=== PATIENT | male | born 1975 | race Caucasian/White ===

== ENCOUNTER 2020-11-06 14:42 | Emergency (ER) | payer SELFPAY ==
[~2020-11-06] VITALS: Ht 172.7 cm; Wt 99.0 kg
--- NOTE | 2020-11-06 15:35 | PHYS DOC ---
General Adult EDM: Chief Complaint: PAIN ON URINATION HPI: HPI: Patient is a 44-year-old male who was seen in the ER for dysuria with urinary frequency and right flank pain. Patient denies hematuria, history of urinary tract infection, abdominal pain, nausea, vomiting, diarrhea, fevers. Patient states that when he was incarcerated, he was told that he had a small kidney stone. Patient's vital signs are stable at this time and he is in no acute distress. (HARINI BLUE APRN) Review of Systems: Review of Systems: 14 body systems of the review of systems have been reviewed. See HPI for pertinent positive and negative responses, otherwise all other systems are negative, nonpertinent or noncontributory (HARINI BLUE APRN) Physical Exam: PE: Constitutional: Well developed, well nourished, no acute distress, non-toxic appearance. [] HENT: Normocephalic, atraumatic Eyes: PERRL, EOMI, conjunctiva normal, no discharge. [] Neck: Normal range of motion, no stridor Cardiovascular:Heart rate regular rhythm with a rate of 98, no murmur [] Lungs & Thorax: Bilateral breath sounds clear to auscultation [] Abdomen: Bowel sounds normal, soft, no tenderness, no masses, no pulsatile masses. [] Skin: Warm, dry, no erythema, no rash. [] Back: No tenderness, right-sided CVA tenderness. [] Extremities: No tenderness, no cyanosis, no clubbing, ROM intact, no edema. [] Neurologic: Alert and oriented X 3, normal motor function, normal sensory function, no focal deficits noted. [] Psychologic: Affect normal, judgement normal, mood normal. [] (HARINI BLUE APRN) Current Patient Data: Labs: Laboratory Tests Test 11/06/20 15:27 Urine Collection Type Unknown Urine Color Yellow Urine Clarity Clear Urine pH 7.0 Urine Specific Kemp 1.020 Urine Protein Neg Urine Glucose (UA) >=1000 mg/dL Urine Ketones (Stick) Neg mg/dL Urine Blood Neg Urine Nitrite Neg Urine Bilirubin Neg Urine Urobilinogen Dipstick 0.2 mg/dL Urine Leukocyte Esterase Neg Urine RBC 0 /HPF Urine WBC 0 /HPF Urine Squamous Epithelial Cells Occ /LPF Urine Bacteria 0 /HPF (HARINI BLUE APRN) EKG: EKG: [] (HARINI BLUE APRN) Radiology/Procedures: Radiology/Procedures: [] (HARINI BLUE APRN) Heart Score: C/O Chest Pain: No Risk Factors: Risk Factors: DM, Current or recent (<one month) smoker, HTN, HLP, family history of CAD, obesity. Risk Scores: Score 0 - 3: 2.5% MACE over next 6 weeks - Discharge Home Score 4 - 6: 20.3% MACE over next 6 weeks - Admit for Clinical Observation Score 7 - 10: 72.7% MACE over next 6 weeks - Early Invasive Strategies (HARINI BLUE APRN) Course & Med Decision Making: Course & Med Decision Making Pertinent Labs and Imaging studies reviewed. (See chart for details) [] Patient is a 44-year-old male being seen in the ER for dysuria and urinary frequency that started several days ago. Patient denies hematuria, history of UTIs, abdominal pain, nausea, vomiting, diarrhea, fevers. He is reporting r ight-sided flank pain. His vital signs are stable. Work-up in the ER consisted of a urinalysis that showed []. (HARINI BLUE APRN) Course & Med Decision Making I was the Attending physician on the above date of service of this patient. This patient was evaluated, examined, treated, and dispositioned from the emergency department by the mid-level practitioner. Although I was working at the time , no assistance was requested. Electronically signed, Yesenia Melchor DO (YESENIA MELCHOR DO) Keith Disclaimer: Keith Disclaimer: This electronic medical record was generated, in whole or in part, using a voice recognition dictation system. (HARINI BLUE APRN) Departure Departure: Impression: Primary Impression: Dysuria Additional Impression: Routine screening for STI (sexually transmitted infection) Disposition: HOME / SELF CARE / HOMELESS Condition: GOOD Referrals: PCP,PIEDAD (PCP) Patient Instructions: Dysuria Additional Instructions: You were seen in the ER today for pain with urination and urinary frequency. Your urinalysis was negative for any blood or bacteria. We will test you for g onorrhea and chlamydia off the urine sample that you provided in the ER and you will be notified of your results in approximately 2 days. Please avoid sexual intercourse until you receive these results. Increase your fluids and avoid bladder irritants like caffeine, alcohol and sugary beverages. Follow-up with your primary care provider tomorrow regarding your ER visit. If you do not have a primary care provider you can follow-up with the attached primary care provider. If you develop worsening of your symptoms, abdominal pain, back pain, intractable nausea or vomiting, high fevers refractory to treatment or any new or worsening concerns return to the ER. EMERGENCY DEPARTMENT GENERAL DISCHARGE INSTRUCTIONS Thank you for coming to [facility] (ED) today and trusting us with you care. We trust that you had a positivie experience in our Emergency Department. If you wish to speak to the department management, you may call the director at [phone]. YOUR FOLLOW UP INSTRUCTIONS ARE FOLLOWS: 1. Do you have a private Doctor? If you do not have a private doctor, please ask for a resource list of physicians or clinics that may be able to assist you with follow up care. 2. The Emergency Physician has interpreted your x-rays. The X-Ray specialist will also review them. If there is a change in the findings, you will be notified in 48 hours when at all possible. 3. A lab test or culture has been done, your results will be reviewed and you will be notified if you need a change in treatment. ADDITIONAL INSTRUCTIONS AND INFORMATION: 1. Your care today has been supervised by a physician who is specially trained in emergency care. Many problems require more than one evaluation for a complete diagnosis and treatment. We recommend that you schedule your follow up appointment as recommended to ensure complete treatment of you illness or injury. If you are unable to obtain follow up care and continue to have a problem, or if your condition worsens, we recommend that you return to the ED. 2. We are not able to safely determine your condition over the phone nor are we able to give sound medical advice over the phone. For these safety reasons, if you call for medical advice we will ask you to come to the ED for further evaluation. 3. If you have any questions regarding these discharge instructions please call the ED at [phone]. SAFETY INFORMATION: In the interest of safety, wellness, and injury prevention; we encourage you to wear your sealbelt, if you smoke; quite smoking, and we encourage family to use a protective helmet for bicycling and other sporting events that present an increased risk for head injury. IF YOUR SYMPTOMS WORSEN OR NEW SYMPTOMS DEVELOP, OR YOU HAVE CONCERNS ABOUT YOUR CONDITION; OR IF YOUR CONDITION WORSENS WHILE YOU ARE WAITING FOR YOUR FOLLOW UP APPOINTMENT; EITHER CONTACT YOUR PRIMARY CARE DOCTOR, THE PHYSICIAN WHOSE NAME AND NUMBER YOU WERE GIVEN, OR RETURN TO THE ED IMMEDIATELY. HARINI BLUE APRN Nov 06, 2020 15:35 YESENIA MELCHOR DO Nov 07, 2020 06:56
[2020-11-06 15:57] VITALS: BP 138/87
[2020-11-06 16:22] LABS: COLOR,URINE YELLOW
[2020-11-06 16:23] LABS: BACTERIA,URINE 0 /HPF (0-FEW); BILIRUBIN,URINE NEG (NEG); CLARITY,URINE CLEAR; GLUCOSE,URINE >=1000 mg/dL (NEG); NITRITE,URINE NEG (NEG); RBC,URINE 0 /HPF (0-2); SQUAMOUS EPITHELIAL CELL,UR OCC /LPF; UROBILINOGEN,URINE 0.2 mg/dL (0.2 mg/dL); WBC,URINE 0 /HPF (0-4)
== END 2020-11-06 17:00 | disposition home or self-care (01) ==
LOC: ER 14:42
DX: Z11.3 Encounter for screening for infections with a predominantly sexual mode of transmission (principal); R30.0 Dysuria
CPT/HCPCS: 36415; 81001; 87491; 87591; 99283